=== PATIENT | female | born 1965 | race Caucasian/White ===

== ENCOUNTER 2017-01-16 02:30 | Emergency (ER) | payer SELFPAY ==
[~2017-01-16] VITALS: Ht 165.1 cm; Wt 52.0 kg
[2017-01-16] MEDS ORDERED: CYCLOBENZAPRINE 10MG TABLET PO ONE (04:00)
[2017-01-16] MEDS ORDERED: ONDANSETRON 4MG ODT PO ONE (04:00)
[2017-01-16 05:25] VITALS: BP 159/91
== END 2017-01-16 05:45 | disposition home or self-care (01) ==
LOC: ER 02:33
DX: S10.93XA Contusion of unspecified part of neck, initial encounter (principal); R11.0 Nausea; F41.9 Anxiety disorder, unspecified
CPT/HCPCS: 99283; Q0162